=== PATIENT | male | born 1945 | race Caucasian/White ===

== ENCOUNTER → 2020-11-15 08:23 | Outpatient (CLI) | payer MEDICARE, OTHER, SELFPAY ==
--- NOTE | 2020-11-15 08:33 | DI.RAD.S_ITS ---
PROCEDURE: XR HIP W PEL IF DONE LT 2V INDICATIONS: Left hip pain post fall TECHNIQUE: AP pelvis with lateral view(s) of the left hip(s). COMPARISON: None. FINDINGS: Bones: No fractures or dislocations. No avascular necrosis of the left femoral head. Mild bilateral hip DJD. Pelvic ring appears intact. No suspicious bony lesions. Soft tissues: The visualized bowel gas pattern is within normal limits. No suspicious soft tissue calcifications. IMPRESSION: Mild left hip DJD. Dictated by: Andrzej Mittal M.D. on 11/15/2020 at 8:55 Approved by: Andrzej Mittal M.D. on 11/15/2020 at 8:56
== END ==
PROVIDERS: PCP Internal Medicine; Referring Provider Nurse Practitioner; Visit Provider Nurse Practitioner
DX: M25.552 Pain in left hip (principal); M16.12 Unilateral primary osteoarthritis, left hip
CPT/HCPCS: 73502

== ENCOUNTER → 2020-12-04 09:51 | Outpatient (CLI) | payer MEDICARE, OTHER, SELFPAY ==
--- NOTE | 2020-12-04 | DI.MRI.S_ITS ---
PROCEDURE: MR LUMBAR SPINE WO CON INDICATIONS: Lesion of sciatic nerve, left lower limb TECHNIQUE: Noncontrast sagittal T1 spin echo and T2 fast echo, sagittal STIR, axial T1 and T2 fast spin echo through the lumbar spine. In cases with scoliosis, additional coronal T2 fast spin echo may be performed. COMPARISON: None. FINDINGS: Image quality: Excellent. Alignment and Curvature: There is grade 1 anterolisthesis of L4 on L5 and measures 5 mm in distance.. Bone Marrow: Marrow is of normal overall signal. No acute vertebral body compression fractures. Spinal Cord: Conus medullaris terminates at the T12-L1 level. Visualized cord demonstrates normal signal and size. Paraspinous Soft Tissues: No paravertebral masses. T12-L1: Loss of disc signal and disc height is seen. There is mild diffuse disc bulge. No significant central canal stenosis or neural foraminal narrowing. L1-L2: There is mild loss of disc height and disc signal. Diffuse disc bulge and bilateral facet arthrosis is seen. No significant central canal stenosis or neural foraminal narrowing. L2-L3: There is loss of disc signal. Broad-based disc bulge and bilateral facet arthrosis is seen with hypertrophy of ligamentum flavum. There is mild central canal stenosis and mild right-sided neural foraminal narrowing. L3-L4: Loss of disc signal and degenerative endplate changes are seen. Broad-based disc bulge and bilateral facet arthrosis with hypertrophy of ligamentum flavum is seen causing [id number]-[id number] central canal stenosis and bilateral neural foraminal narrowing. L4-L5: There is loss of disc height and disc signal. Broad-based disc bulge and bilateral facet arthrosis is seen with hypertrophy of ligamentum flavum. There is severe central canal stenosis and right worse than left bilateral neural foraminal narrowing. There is compression of bilateral exiting L4 nerve roots. L5-S1: Loss of disc height and mild loss of disc signal is seen. Diffuse disc bulge and bilateral facet arthrosis is noted without significant canal stenosis or neural foraminal narrowing. IMPRESSION: 1. Grade 1 anterolisthesis of L4 on L5. No acute compression fracture. No marrow edema. 2. Degenerative disc bulge and bilateral facet arthrosis throughout lumbar spine causing central canal stenosis and bilateral neural foraminal narrowing most prominent at L4-5 level as above. Dictated by: Kel Hart M.D. on 12/06/2020 at 10:10 Approved by: Kel Hart M.D. on 12/06/2020 at 10:32
== END ==
PROVIDERS: PCP Internal Medicine; Referring Provider Internal Medicine; Visit Provider Internal Medicine
DX: G57.02 Lesion of sciatic nerve, left lower limb (principal); M43.16 Spondylolisthesis, lumbar region; M51.36 Other intervertebral disc degeneration, lumbar region; M51.37 Other intervertebral disc degeneration, lumbosacral region; M47.816 Spondylosis without myelopathy or radiculopathy, lumbar region; M47.817 Spondylosis without myelopathy or radiculopathy, lumbosacral region; M48.061 Spinal stenosis, lumbar region without neurogenic claudication; M48.07 Spinal stenosis, lumbosacral region
CPT/HCPCS: 72148

== ENCOUNTER 2022-07-04 11:21 | Emergency (ER) | payer MEDICARE, OTHER, SELFPAY ==
--- NOTE | 2022-07-04 11:33 | DI.RAD.S_ITS ---
PROCEDURE: XR HAND RT MIN 3V INDICATIONS: cut hand with metal grinder, dorsum TECHNIQUE: 4 views of the hand(s) acquired. COMPARISON: None. FINDINGS: Bones: No fractures or dislocations. Carpal bones are normally aligned. No suspicious bony lesions. Interphalangeal osteoarthritis. Soft tissues: No suspicious soft tissue calcifications. IMPRESSION: No acute bony abnormality. Dictated by: Reginaldo Souza M.D. on 07/04/2022 at 12:11 Approved by: Reginaldo Souza M.D. on 07/04/2022 at 12:12
[2022-07-04 11:35] VITALS: BP 119/73; PULSE 78; RESP 18; O2SAT 96; BMI 25.1
--- NOTE | 2022-07-04 11:56 | ED.WOUNDLAC ---
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 He denies any numbness in his distal fingers or any decrease in range of motion of his fingers. Patient is on Eliquis as a blood thinner. Reports mild pain otherwise no concerns. Tetanus is up-to-date. Related Data Home Medications Medication Instructions Recorded Confirmed atorvastatin 20 mg tablet (Lipitor) 20 mg PO HS ##0 03/21/16 11/15/20 lisinopril 20 mg tablet 20 mg PO QDAY ##0 03/21/16 11/15/20 Eloquis PO 11/15/20 11/15/20 metoprolol succinate PO 11/15/20 11/15/20 Previous Rx's Medication Instructions Recorded cephalexin 500 mg capsule 500 mg PO QID 5 days #20 caps 07/04/22 Allergies Allergy/AdvReac Type Severity Reaction Status Date / Time No Known Allergies Allergy Uncoded 07/04/22 11:35 Review of Systems <You Shultz PA-C - Last Filed: 07/04/22 16:09> Review of Systems Narrative: GENERAL: Denies chills, fatigue, malaise, fever, sweats. HEENT: Denies sinus pain, ear pain, sore throat, difficulty swallowing, dizziness. RESPIRATORY: Denies dyspnea, cough, wheezing, hemoptysis, sputum. CARDIOVASCULAR: Denies chest pain, palpitations, orthopnea, edema, GASTROINTESTINAL: Denies nausea, vomiting, abdominal pain, diarrhea, constipation, melena. : Denies dysuria, frequency, incontinence, hematuria, urinary retention. MUSCULOSKELETAL: denies weakness, joint pain, or bony pain SKIN: Hand laceration NEUROLOGIC: Denies weakness, headache, numbness, change in speech, confusion, seizures, incoordination. PSYCHIATRIC: No concerning psychosocial issues. 12 point review of systems is negative except for those stated above Patient History <You Shultz PA-C - Last Filed: 07/04/22 16:09> Medical History Afib Social History Smoking Status: Current every day smoker Smoking Status: Current every day smoker tobacco type: pipe alcohol intake frequency: 3 or more drinks per day Alcohol type: beer Substance Use Type: does not use Exam <FRANCISCO JAVIER Lopez Last Filed: 07/04/22 16:09> Narrative Exam Narrative: GENERAL: Well-developed patient, in mild distress. HEAD: Atraumatic. Normocephalic. EYES: Pupils equal round and reactive. Extraocular motions intact. No scleral icterus. No injection or drainage. ENT: Nose without bleeding, purulent drainage. Throat without erythema, tonsillar hypertrophy or exudate. Airway patent. NECK: Trachea midline. Non tender CARDIOVASCULAR: Regular rate and rhythm without murmurs, gallops, or rubs. RESPIRATORY: Clear to auscultation. Breath sounds equal bilaterally. No wheezes, rales, or rhonchi. GASTROINTESTINAL: Abdomen soft, non-tender, nondistended. EXTREMITIES: No edema or joint tenderness. BACK: Nontender without deformity or crepitance. No flank tenderness. NEURO: AOx3. SKIN: Approximately 2.5 cm long linear laceration to the dorsal aspect of the right hand at about the 3rd metacarpal. No active bleeding. Patient has full extension and flexion of the fingers at all joints. Neurovascularly intact throughout. Cap refill under 2 seconds Initial Vital Signs Initial Vital Signs: Vital Signs Pulse Rate 78 07/04/22 11:35 Respiratory Rate 18 07/04/22 11:35 Blood Pressure 119/73 07/04/22 11:35 Pulse Oximetry 96 07/04/22 11:35 Oxygen Delivery Method Room Air 07/04/22 11:35 <Cece Mccullough DO - Last Filed: 07/04/22 16:19> Initial Vital Signs Initial Vital Signs: Vital Signs Pulse Rate 78 07/04/22 11:35 Respiratory Rate 18 07/04/22 11:35 Blood Pressure 119/73 07/04/22 11:35 Pulse Oximetry 96 07/04/22 11:35 Oxygen Delivery Method Room Air 07/04/22 11:35 Procedures <You Shultz PA-C - Last Filed: 07/04/22 16:09> Laceration Repair Laceration 1: Time of procedure: 12:45 Site: hand Side (If applicable): right Size (cm): 2.5 Description: linear Depth: simple, single layer Local Anesthetic: lidocaine 2% Amount of anesthesia used (mL): 4 Pre-repair: irrigated extensively Skin layer closed with: nylon Skin layer suture size: 5-0 Number of sutures: 6 Technique: simple, interrupted Course <You Suhltz PA-C - Last Filed: 07/04/22 16:09> Orders Ordered: ED Orders 07/04/22 11:33 XR hand RT min 3V Stat Discontinued Medications Diphtheria/Tetanus/Acell Pertussis (Tet,Diph,Pertuss(Acell),Vac/Pf 0.5 Ml Syringe) 0.5 ml IM .ONCE ONE Stop: 07/04/22 11:35 Last Admin: 07/04/22 12:14 Dose: Not Given Documented By: KLS Lidocaine HCl (Lidocaine 1% 20 Ml) 20 ml INJ INTRA-OP ONE Stop: 07/04/22 12:04 Lidocaine HCl (Lidocaine 2% Inj Sdv 5ml) 5 ml INJ INTRA-OP ONE Stop: 07/04/22 12:39 Last Admin: 07/04/22 12:40 Dose: 5 ml Documented By: AT Vital Signs Vital signs: Vital Signs - 8 hr 07/04/22 11:35 07/04/22 12:50 Pulse Rate 78 72 Respiratory Rate 18 18 Blood Pressure 119/73 109/73 Pulse Oximetry 96 99 Oxygen Delivery Method Room Air Room Air <Cece Mccullough DO - Last Filed: 07/04/22 16:19> Orders Ordered: ED Orders 07/04/22 11:33 XR hand RT min 3V Stat Discontinued Medications Diphtheria/Tetanus/Acell Pertussis (Tet,Diph,Pertuss(Acell),Vac/Pf 0.5 Ml Syringe) 0.5 ml IM .ONCE ONE Stop: 07/04/22 11:35 Last Admin: 07/04/22 12:14 Dose: Not Given Documented By: KLS Lidocaine HCl (Lidocaine 1% 20 Ml) 20 ml INJ INTRA-OP ONE Stop: 07/04/22 12:04 Lidocaine HCl (Lidocaine 2% Inj Sdv 5ml) 5 ml INJ INTRA-OP ONE Stop: 07/04/22 12:39 Last Admin: 07/04/22 12:40 Dose: 5 ml Documented By: AT Vital Signs Vital signs: Vital Signs - 8 hr 07/04/22 11:35 07/04/22 12:50 Pulse Rate 78 72 Respiratory Rate 18 18 Blood Pressure 119/73 109/73 Pulse Oximetry 96 99 Oxygen Delivery Method Room Air Room Air MDM - Wound/Laceration <You Shultz PA-C - Last Filed: 07/04/22 16:09> Imaging Data Extremity x-ray #1: Radiologist's Impression: [address] [address] XRay Report Signed Patient: Tigre Dunn MR#: [id number] : 1945 Acct:[id number] Age/Sex: 77 / M Date of Service: 07/04/22 Loc: ED Accession Number: [id number] ?? Procedure: XR hand RT min 3V Ordering Provider: Cece Mccullough D.O. PROCEDURE:? XR HAND RT MIN 3V ? INDICATIONS:? cut hand with soap grinder, dorsum ? TECHNIQUE:? 4 views of the hand(s) acquired.? ? COMPARISON:? None. ? FINDINGS:? ? Bones:? No fractures or dislocations.? Carpal bones are normally aligned.? No suspicious bony lesions.? Interphalangeal osteoarthritis. ? Soft tissues:? No suspicious soft tissue calcifications.? ? ? IMPRESSION:? No acute bony abnormality.? Dictated by: Reginaldo Souza M.D. on 07/04/2022 at 12:11 ? ? Approved by: Reginaldo Souza M.D. on 07/04/2022 at 12:12 ? [facility] Narrative Medical decision making narrative: [facility] * differential diagnosis includes but not limited to superficial laceration, tendon injury, fracture * Prior records reviewed: Patient has not been here for similar complaints in the past. 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 Tetanus date. X-ray shows no evidence of fractures. Patient full extension infection of his fingers and low concern for any kind of tendon damage. Patient was neurovascularly intact throughout. The wound was your it and closed using 5 0 nylon sutures without complications. Recommended patient have sutures removed in 7-10 days. Due to the nature of the injury antibiotics will be prescribed for infectious prophylaxis. Shared Decision Making: Discussed plan with patient who is comfortable with the plan. Social Considerations: None Disposition: Discharged to home Discharge Plan Departure Patient Disposition: Home Clinical Impression: Laceration Instructions: DI for Laceration Repair Activity Restrictions/Additional Instructions: Thank you for coming to the [facility] Emergency Department today. I am glad that we are able to close up the wound today. You may speak with your primary care provider, return here to the emergency department, or go to urgent care for suture removal in 7-10 days. Please take the antibiotics as prescribed. Avoid any kind of infection. Your x-ray shows no evidence of any fractures. I hope you feel better soon. Prescriptions: New cephalexin 500 mg capsule 500 mg PO QID 5 Days Qty: 20 0RF No Action Eloquis PO metoprolol succinate PO atorvastatin [Lipitor] 20 MG tablet 20 mg PO HS Qty: 0 lisinopril 20 MG tablet 20 mg PO QDAY Qty: 0 Referrals: ProviderBrett [Primary Care Provider] - Stand Alone Forms: Patient Portal/API <Cece Mccullough DO - Last Filed: 07/04/22 16:19> Cosign ED Attending Andi Attestation: I was immediately available in the department for consultation.
[2022-07-04] MEDS: LIDOCAINE 2% INJ SDV 5ML 5 ML INJ (12:40)
[2022-07-04 12:50] VITALS: BP 109/73; PULSE 72; RESP 18; O2SAT 99
== END 2022-07-04 13:02 | disposition home or self-care (01) ==
PROVIDERS: Emergency Provider Physician Assistant Medical
DX: S61.411A Laceration without foreign body of right hand, initial encounter (principal); W31.89XA Contact with other specified machinery, initial encounter
CPT/HCPCS: 12001; 73130; 99283

== ENCOUNTER 2023-09-20 08:23 | Emergency (ER) | payer MEDICARE, OTHER, SELFPAY ==
[2023-09-20 08:30] VITALS: BP 156/87; PULSE 60; O2SAT 96
[2023-09-20 08:32] VITALS: BP 156/87; PULSE 52; RESP 18; TEMP 36.5; O2SAT 96; BMI 26.5
[2023-09-20 09:00] VITALS: PULSE 51; O2SAT 98
--- NOTE | 2023-09-20 09:00 | DI.RAD.S_ITS ---
PROCEDURE: XR RIBS LT MIN 3V W CXR1V INDICATIONS: fell on wood felt pop, pain TECHNIQUE: 2 views of the ribs were acquired, along with a single view chest. COMPARISON: None. FINDINGS: Surgical changes and devices: None. Bones and chest wall: No fractures or dislocations. No suspicious bony lesions. Overlying soft tissues appear unremarkable. Lungs and pleura: No pleural effusions or pneumothorax. Lungs appear clear. Mediastinum: Mediastinal contours appear normal. Heart size is normal. IMPRESSION: No displaced left rib fracture. No underlying acute pulmonary process. Dictated by: Eliud Gresham M.D. on 09/20/2023 at 9:58 Approved by: Eliud Gresham M.D. on 09/20/2023 at 10:00
--- NOTE | 2023-09-20 09:24 | ED.FALL ---
HPI - Fall General Chief Complaint: Fall Stated Complaint: poss broken rib L side Time Seen by Provider: 09/20/23 09:24 Source: patient Mode of arrival: Ambulatory Limitations: no limitations History of Present Illness HPI Narrative: 78-year-old male on Eliquis for atrial fibrillation who 2 days ago was putting some weight away when his king slipped over piece of wood and he had the end of a piece of the wood going to his left chest. He has had some persistent pain in that location since then. He states it hurts a little bit to take a deep breath. Cough or sneezing also are uncomfortable. He states no shortness of breath, no other difficulties, he has not had any bruising or skin changes. No lightheadedness. Denies any other symptoms. He states he presents today because his was concerned as his pain has not resolved. He states he overall feels fine although it is uncomfortable. He states minute pain has been managed with [id number] medication at home. Related Data Home Medications Medication Instructions Recorded Confirmed atorvastatin 20 mg tablet (Lipitor) 20 mg PO HS ##0 03/21/16 11/15/20 lisinopril 20 mg tablet 20 mg PO QDAY ##0 03/21/16 11/15/20 Eloquis PO 11/15/20 11/15/20 metoprolol succinate PO 11/15/20 11/15/20 Allergies Allergy/AdvReac Type Severity Reaction Status Date / Time No Known Allergies Allergy Uncoded 07/04/22 11:35 Review of Systems Review of Systems ROS Unobtainable: All systems reviewed & are unremarkable except as noted in HPI and below Patient History Medical History Afib Social History Smoking Status: Current every day smoker Smoking Status: Current every day smoker tobacco type: pipe alcohol intake frequency: 3 or more drinks per day Alcohol type: beer Substance Use Type: does not use Exam Narrative Exam Narrative: GENERAL: Alert and oriented x three, well-appearing elderly male in mild distress. HEENT: Head normocephalic, atraumatic, EOMI, pupils reactive, face symmetric, moist mucous membranes NECK: Supple, full range of motion CARDIOVASCULAR: Regular rate and rhythm without murmurs, rubs or gallops. Patient has some tenderness over the left lateral ribs 4 5 region just underneath pectoral muscle. No ecchymosis, no hematoma no other skin changes. Patient does not have any subcutaneous emphysema. Normal symmetrical wall motion. RESPIRATORY: Breath sounds equal bilaterally, no wheezes rales or rhonchi. ABDOMEN: Soft, nontender. Normoactive bowel sounds all 4 quadrants. No guarding or rebound, rigidity, no mass : No CVA tenderness EXTREMITIES: Normal range of motion, no clubbing or edema. Neurovascularly intact NEUROLOGICAL: Cranial nerves II through XII grossly intact. Moving all extremities. Normal gait. SKIN: Warm, dry, no petechiae, no rashes or lesions. Initial Vital Signs Initial Vital Signs: Vital Signs Pulse Rate 60 09/20/23 08:30 Blood Pressure 156/87 H 09/20/23 08:30 Pulse Oximetry 96 09/20/23 08:30 Course Orders Ordered: ED Orders 09/20/23 09:00 XR ribs LT min 3V w CXR1V Stat Vital Signs Vital signs: Vital Signs - 8 hr 09/20/23 08:30 09/20/23 08:30 09/20/23 08:32 Temperature 97.7 F Pulse Rate 60 52 L Respiratory Rate 18 Blood Pressure 156/87 H 156/87 H Pulse Oximetry 96 96 Oxygen Delivery Method Room Air 09/20/23 09:00 09/20/23 09:34 09/20/23 09:34 Temperature Pulse Rate 51 L 57 L Respiratory Rate Blood Pressure 158/87 H Pulse Oximetry 98 97 Oxygen Delivery Method MDM - Fall Imaging Data Chest x-ray: Radiologist's Impression: [address] [address] XRay Report Signed Patient: Tigre Dunn MR#: [id number] : 1945 Acct:[id number] Age/Sex: 78 / M Date of Service: 09/20/23 Loc: ED Accession Number: [id number] Procedure: XR ribs LT min 3V w CXR1V Ordering Provider: Cece Mccullough D.O. PROCEDURE: XR RIBS LT MIN 3V W CXR1V INDICATIONS: fell on wood felt pop, pain TECHNIQUE: 2 views of the ribs were acquired, along with a single view chest. COMPARISON: None. FINDINGS: Surgical changes and devices: None. Bones and chest wall: No fractures or dislocations. No suspicious bony lesions. Overlying soft tissues appear unremarkable. Lungs and pleura: No pleural effusions or pneumothorax. Lungs appear clear. Mediastinum: Mediastinal contours appear normal. Heart size is normal. IMPRESSION: No displaced left rib fracture. No underlying acute pulmonary process. Dictated by: Eliud Gresham M.D. on 09/20/2023 at 9:58 Approved by: Eliud Gresham M.D. on 09/20/2023 at 10:00 [facility] Narrative Medical decision making narrative: 78-year-old with left chest pain after falling onto a piece of wood. Patient has negative chest x-ray for acute fracture. Suspect either nondisplaced fracture or contusion of the rib. Patient has not incentive spirometer at home that he can use and knows how to use it. We will continue with this. He states pain has been well-controlled with [id number]-[id number] medications. Discussed return precautions all questions answered. Discharge Plan Departure Patient Disposition: Home Clinical Impression: Contusion of rib on left side Instructions: DI for Rib Contusion Activity Restrictions/Additional Instructions: Follow up as needed for recheck if your symptoms have not continuing to improve. May take several weeks for your symptoms to totally resolve. Continue with Tylenol up to a 1000 mg every 6 hours as needed for pain. Use your incentive spirometer once hourly while awake for the next week. Please return for rapidly worsening chest pain, shortness of breath, lightheadedness or passing out, coughing up blood, fevers or other new or concerning changes. Prescriptions: No Action Eloquis PO metoprolol succinate PO atorvastatin [Lipitor] 20 MG tablet 20 mg PO HS Qty: 0 lisinopril 20 MG tablet 20 mg PO QDAY Qty: 0 Referrals: ProviderBrett [Primary Care Provider] - Stand Alone Forms: Patient Portal/API
[2023-09-20 09:34] VITALS: BP 158/87; PULSE 57; O2SAT 97
[2023-09-20 10:00] VITALS: BP 181/80; PULSE 58; O2SAT 98
== END 2023-09-20 10:35 | disposition home or self-care (01) ==
PROVIDERS: Emergency Provider Emergency Medicine
DX: S20.212A Contusion of left front wall of thorax, initial encounter (principal); W01.198A Fall on same level from slipping, tripping and stumbling with subsequent striking against other object, initial encounter; Z79.899 Other long term (current) drug therapy
CPT/HCPCS: 71101; 99283

== ENCOUNTER 2024-04-11 06:31 | Day surgery (SDC) | payer MEDICARE, OTHER, SELFPAY ==
--- NOTE | 2024-04-11 | PATH_ITS ---
[facility] Accession Number: [id number] No. of containers..01 Tissue . 01 Material submitted: . colon - COLON BIOPSY AT 40 CM . 01 Diagnosis: A. COLON AT 40 CM: Colonic mucosa with mild hyperplastic changes. Negative for colitis, granulomas, and dysplasia. MRV 04/16/2024 1239 Local . 01 Electronically signed: . Jami Armstrong DO, Pathologist NPI- [id number] . 01 Gross description: . COLON BIOPSY AT 40 CM: Received in formalin is 1 fragment(s) of junior, soft tissue measuring 0.3 x 0.2 x 0.2 cm submitted entirely in 1 cassette(s) /KEILA 04/12/2024 0048 Local . 01 Pathologist provided ICD-10: Z86.0100 . 01 CPT . 854433 Specimen Comment: A courtesy copy of this report has been sent to [facility] Pathology Performed at: [address] [address], [place], [place] [id number] MD Earl Harper MD Phone: [phone]
[2024-04-11 07:28] VITALS: BP 114/76; PULSE 84; RESP 16; TEMP 36.2; O2SAT 97
[2024-04-11] MEDS: SODIUM CHLORIDE 0.9% 1,000 ML 84 ML IV (07:31)
--- NOTE | 2024-04-11 07:54 | PM.HP.1 ---
History of Present Illness History of Present Illness Date Patient Seen: 04/11/24 Time Patient Seen: 07:40 Chief complaint: Colonoscopy w/poss bx [facility] Medical History (Updated 04/11/24 @ 07:08 by Symone Reich RN) Hypercholesteremia Hypertension Afib Social History Smoking Status: Current every day smoker Meds Home Medications and Allergies Home Medications Medication Instructions Recorded Confirmed Type apixaban 5 mg tablet (Eliquis) 5 mg PO BID 11/09/23 04/11/24 History atorvastatin 40 mg tablet 40 mg PO DAILY 11/09/23 04/11/24 History hydrochlorothiazide 25 mg tablet 25 mg PO DAILY 11/09/23 04/11/24 History lisinopril 40 mg tablet 40 mg PO DAILY 11/09/23 04/11/24 History metoprolol succinate 50 mg 50 mg PO BID 11/09/23 04/11/24 History tablet,extended release 24 hr spironolactone 25 mg tablet 25 mg PO DAILY 11/09/23 04/11/24 History Allergies Allergy/AdvReac Type Severity Reaction Status Date / Time No Known Allergies Allergy Uncoded 04/11/24 07:09 Review of Systems Review of Systems ROS: Yes All systems reviewed with the patient and are negative except as otherwise documented Exam Vital Signs (past 8 hours): - 04/11/24 07:28 Temperature 97.1 F L Pulse Rate 84 Respiratory Rate 16 Blood Pressure 114/76 Pulse Oximetry 97 Oxygen Delivery Method Room Air Oxygen Delivery Method Room Air Narrative Exam Narrative: No abdominal problems. Assessment & Plan Assessment and plan (1) H/O colonoscopy with polypectomy: Problem details: 2016 had multiple polypectomies, and was recommended to repeat after 3 yrs, but only came today, after 9 yrs. Had a good bowel prep, will colonoscope him today, Status: Acute Time-Based Coding :: [TOTAL MINUTES] spent with patient and on the chart (including review of chart, obtaining history, exam, reviewing outside data, placing orders, documenting exam and treatment plan, and counseling patient) on [DATE].
--- NOTE | 2024-04-11 08:25 | PM.OP.COLON ---
Procedure & Clinicians Study performed: Colonoscopy with one polypectomy at 40 cm. Same procedure as scheduled: Yes Surgeon: Abdirahman May Procedure Notes Procedure in detail: OPERATIVE / PROCEDURE NOTE Tigre Dunn, 1945, 79,Male,CSN: [id number] 04/11/24 PREOPERATIVE DIAGNOSIS: H/O polypectomies 2015. POSTOPERATIVE DIAGNOSIS: Same + Per the colonoscopy to the cecum: mild sigmoid diverticulosis noted + 0.5 cm polypectomy performed at 40 cm form the anal verge, grade 2 internal hemorrhoids. PROCEDURE DONE: Colonoscopy to the cecum. ANESTHESIA: MAC per Anesthesia. COMPLICATIONS: None. SPECIMENS: None. ESTIMATED BLOOD LOSS: NONE. CONDITION: Stable to the PACU. OPERATIVE DESCRIPTION: After proper informed consent was signed by the patient knowing all the risks, benefits, and potential complications and possible alternatives of the procedure, the patient was appropriately identified. Tigre Dunn underwent a bowel prep that was very efficient yesterday, and the colon was clean. After institution of sedation on his left lateral decubitus position, a rectal exam was performed. Normal rectal and anal tone was found. The Olympus colonoscope was placed into his anus and under direct visualization was advanced from the rectum to the rectosigmoid to the sigmoid to the left colon, splenic flexure, transverse colon, hepatic flexure, ascending colon, and all the way to the cecum. Circumferential visualization of the mucosa was possible. The appendix aperture was noted. The ileocecal valve was noted. No large tumors. No ulcers. No inflammatory bowel disease changes were noted. Small very few 2-3 diverticulae noted in the sigmoid colon. Mild sigmoid diverticulosis noted + 0.5 cm polypectomy performed at 40 cm form the anal verge, grade 2 internal hemorrhoids. In the rectum, the scope was retroflexed, and Grade II internal hemorrhoids were noted. The scope was straightened back again. The colon was decompressed, and the scope was retracted out uneventfully. The patient tolerated the procedure well without any complications, was sent to the PACU in stable condition. RECOMMENDATIONS: Continue high-fiber diet - 30-40 gm/day with daily fiber supplementation. Will recommend the timing of the next due colonoscopy, if ever is needed, after the pathology is back.
[2024-04-11 08:29] VITALS: BP 114/82; BP 98/71; PULSE 104; PULSE 99; RESP 20; RESP 28; TEMP 36.1; O2SAT 94; O2SAT 98
[2024-04-11 08:39] VITALS: BP 100/72; PULSE 96; RESP 22; O2SAT 95
[2024-04-11 08:48] VITALS: BP 95/70; PULSE 111; RESP 23; O2SAT 95
== END 2024-04-11 09:05 | disposition home or self-care (01) ==
PROVIDERS: Referring Provider Surgery; Visit Provider Surgery
PROC: 0DJD8ZZ Inspection of Lower Intestinal Tract, Via Natural or Artificial Opening Endoscopic (ICD-10-PCS; CPT 45378; principal; 2024-04-11 07:45)
DX: Z12.11 Encounter for screening for malignant neoplasm of colon (principal); Z86.0100 Personal history of colon polyps, unspecified; K57.30 Diverticulosis of large intestine without perforation or abscess without bleeding; K64.1 Second degree hemorrhoids
CPT/HCPCS: G0105; 45385; J2704

== ENCOUNTER → 2024-06-27 11:38 | Outpatient (CLI) | payer MEDICARE, OTHER, SELFPAY ==
--- NOTE | 2024-06-27 11:40 | DI.RAD.S_ITS ---
PROCEDURE: XR HAND RT MIN 3V INDICATIONS: Bilateral hand/wrist pain TECHNIQUE: 3 views of the hand(s) acquired. COMPARISON: [facility], CR, XR HAND RT MIN 3V, 07/04/2022, 11:36. FINDINGS: Bones: No fractures or dislocations. Degenerative change of the 1st carpometacarpal and metacarpophalangeal joints includes joint space narrowing, articular sclerosis and marginal osteophytosis. There is mild subluxation at the 1st MCP joint. Carpal bones are normally aligned. No suspicious bony lesions. Soft tissues: No suspicious soft tissue calcifications. IMPRESSION: Degenerative change involving the 1st CMC and MCP joints without evidence of acute osseous abnormality. Dictated by: Mike Shore M.D. on 06/28/2024 at 6:38 Approved by: Mike Shore M.D. on 06/28/2024 at 6:39
--- NOTE | 2024-06-27 11:40 | DI.RAD.S_ITS ---
PROCEDURE: XR WRIST RT MIN 3V INDICATIONS: Bilateral hand/wrist pain TECHNIQUE: 4 views of the wrist were acquired. COMPARISON: None. FINDINGS: Bones: No fractures or dislocations. No suspicious bony lesions. Soft tissues: No suspicious soft tissue calcifications. IMPRESSION: No acute bony abnormality. Dictated by: Mike Shore M.D. on 06/28/2024 at 6:39 Approved by: Mike Shore M.D. on 06/28/2024 at 6:40
--- NOTE | 2024-06-27 11:40 | DI.RAD.S_ITS ---
PROCEDURE: XR WRIST LT MIN 3V INDICATIONS: Bilateral hand/wrist pain TECHNIQUE: 4 views of the wrist were acquired. COMPARISON: None. FINDINGS: Bones: No fractures or dislocations. No suspicious bony lesions. Soft tissues: No suspicious soft tissue calcifications. IMPRESSION: No acute bony abnormality. Dictated by: Mike Shore M.D. on 06/28/2024 at 6:34 Approved by: Mike Shore M.D. on 06/28/2024 at 6:35
--- NOTE | 2024-06-27 11:40 | DI.RAD.S_ITS ---
PROCEDURE: XR HAND LT MIN 3V INDICATIONS: Bilateral hand/wrist pain TECHNIQUE: 3 views of the hand(s) acquired. COMPARISON: [facility], CR, XR HAND RT MIN 3V, 07/04/2022, 11:36. FINDINGS: Bones: No fractures or dislocations. Advanced degenerative change noted at the 1st metacarpophalangeal joint including joint space loss, articular sclerosis, marginal osteophytosis and moderate subluxation. Carpal bones are normally aligned. No suspicious bony lesions. Soft tissues: No suspicious soft tissue calcifications. IMPRESSION: Degenerative change of the 1st MCP joint without evidence of acute bony abnormality. Dictated by: Mike Shore M.D. on 06/28/2024 at 6:36 Approved by: Mike Shore M.D. on 06/28/2024 at 6:37
== END ==
LOC: RAD 11:39
PROVIDERS: PCP Family Medicine; Referring Provider Family Medicine; Visit Provider Family Medicine
DX: M25.541 Pain in joints of right hand (principal); M25.542 Pain in joints of left hand; M25.531 Pain in right wrist; M25.532 Pain in left wrist
CPT/HCPCS: 73110; 73130

== ENCOUNTER → 2024-10-15 11:14 | Outpatient (CLI) | payer MEDICARE, OTHER, SELFPAY ==
[2024-10-15 12:32] LABS: Hematocrit 35.5 % (41-53); Hemoglobin 12.1 g/dL (13.5-17.5); Mean Corpuscular HGB Conc 34.2 % (30-36); Mean Corpuscular Hemoglobin 32.9 PG (26-34); Mean Corpuscular Volume 96.4 fL (80-100); Platelet Count 315 X10^3/uL (150-400)
[2024-10-15 12:53] LABS: Alanine Aminotransferase 19 IU/L (<50); Albumin 3.7 g/dL (3.5-5.0); Albumin Globulin Ratio 1.2 (1.0-2.8); Alkaline Phosphatase 105 U/L (38-126); Blood Urea Nitrogen 26 mg/dL (9-20); Calcium 9.9 mg/dL (8.4-10.2); Carbon Dioxide 23 mmol/L (22-32); Chloride 101 mmol/L (98-107); Cholesterol 156 mg/dL (140-199); Estimated Glomerular Filt Rate > 60 mL/min (>60); Globulin 3.1 g/dL (1.7-4.1); Glucose 91 mg/dL (70-99); HDL Cholesterol 43 mg/dL (40-60); HEMOLYSIS < 15 (0-50); Potassium 5.2 mmol/L (3.4-5.1); Sodium 133 mmol/L (137-145); Total Protein 6.8 g/dL (6.3-8.2); Triglycerides 115 mg/dL (35-150)
[2024-10-16 00:45] LABS: Hep C Virus Ab w/Reflex Quant NEGATIVE s/c (NEGATIVE)
== END ==
PROVIDERS: PCP Family Medicine; Referring Provider Family Medicine; Visit Provider Family Medicine
DX: I10 Essential (primary) hypertension (principal); E78.00 Pure hypercholesterolemia, unspecified; Z11.59 Encounter for screening for other viral diseases
CPT/HCPCS: 36415; 80053; 80061; 82043; 82570; 85027; 86803

== ENCOUNTER → 2024-11-07 15:45 | Outpatient (CLI) | payer MEDICARE, OTHER, SELFPAY ==
--- NOTE | 2024-11-07 15:47 | DI.MRI.S_ITS ---
PROCEDURE: MR WRIST RT W CON INDICATIONS: R/o TFCC tear TECHNIQUE: After the administration of 3-4 mL of dilute intra-articular Gadolinium contrast into the radiocarpal compartment, coronal T1 spin echo with fat saturation and T2 fast spin echo with fat saturation, axial T1 spin echo and T2 fast spin echo with fat saturation, sagittal T1 spin echo with and without fat saturation through the wrist. COMPARISON: None. FINDINGS: Image quality: Excellent. Bones and cartilage: The carpal bones are normally aligned. Moderate osteoarthritic changes throughout wrist joints with joint space narrowing in, subchondral sclerosis and subcortical cystic changes. Mild edema is seen throughout distal radius, ulnar, carpal bones and metacarpal bones without discrete fracture line. No evidence of avascular necrosis . No suspicious bony lesions. Carpal ligaments: There is full thickness perforation involving dorsal and central component of the scapholunate ligament with gadolinium extravasation into the mid-carpal compartment. The lunotriquetral ligament is intact. The radioscaphocapitate and radiolunotriquetral ligaments appear intact. The dorsal intercarpal and radiotriquetral ligaments appear intact. On sagittal images, the pisohamate ligament appears intact. Triangular fibrocartilage complex: There is triangular fibrocartilage complex tear near the its ulnar insertion with gadolinium extravasation into the distal radioulnar joint. The ulnar collateral ligament appears intact. The extensor carpi ulnaris tendon is thickened with fluid distending tendon sheath at the level of distal ulna and triquetrum. Tendons and soft tissues: The carpal tunnel structures appear normal, including the median nerve. The ulnar nerve appears normal within Guyon's canal. Rest of the extensor tendons are intact. No soft tissue ganglion cysts. IMPRESSION: 1. Moderate osteoarthritic throughout wrist joints. No acute fracture or dislocation. Mild edema throughout carpal bones and metacarpal bones concerning for stress related changes versus changes secondary to osteoarthritis. No evidence of avascular necrosis. 2. 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 The lunotriquetral ligament is intact. 3. Suggestion of triangular fibrocartilage tear near its ulnar insertion with contrast extravasating into distal radial ulnar joint. 4. Low to moderate grade tenosynovitis involving extensor carpi ulnaris tendon at the level of distal ulnar and triquetrum. Rest of the extensor and flexor tendons are intact. Dictated by: Kel Hart M.D. on 11/10/2024 at 9:03 Approved by: Kel Hart M.D. on 11/10/2024 at 9:09
--- NOTE | 2024-11-07 15:47 | DI.RAD.S_ITS ---
PROCEDURE: FL ARTHROGRAM WRIST RT INDICATIONS: r/o TFCC tear COMPARISON: None. TECHNIQUE: After informed consent had been obtained, the wrist was examined fluoroscopically, and a site chosen for injection of the radiocarpal compartment from a dorsal approach. Skin was prepped and draped in a sterile fashion and 1% lidocaine infiltrated from the skin down to the articular surface. A hypodermic needle was then introduced into the articular space and a modest amount of contrast medium was instilled confirming intra-articular needle tip placement. This was followed by approximately 4 mL of a dilute gadolinium solution. Needle was removed and dressing was applied. The patient experienced no complications throughout the procedure and left the fluoroscopic suite in no apparent distress. FINDINGS: A single fluoroscopic spot image demonstrates intra-articular location to injected iodinated contrast. IMPRESSION: Successful fluoroscopic-guided administration of dilute Gadolinium solution for wrist MR arthrogram. Dictated by: Reginaldo Souza M.D. on 11/07/2024 at 16:53 Approved by: Reginaldo Souza M.D. on 11/07/2024 at 16:53
[2024-11-07] MEDS: LIDOCAINE 1% 20 ML INJ (16:50)
[2024-11-07] MEDS: SODIUM CHLORIDE 0.9 % 20 ML VIAL IV (16:51)
== END ==
LOC: RAD 15:46
PROVIDERS: Family Provider Family Medicine; PCP Family Medicine; Referring Provider Orthopaedic Surgery; Visit Provider Orthopaedic Surgery
DX: M19.031 Primary osteoarthritis, right wrist (principal); G56.01 Carpal tunnel syndrome, right upper limb; S63.591A Other specified sprain of right wrist, initial encounter; M65.931 Unspecified synovitis and tenosynovitis, right forearm
CPT/HCPCS: 25246; 73115; 73222; A9579; Q9967